=== PATIENT | male | born 1975 | race Caucasian/White ===

== ENCOUNTER 2016-07-20 09:56 | Emergency (ER) | payer OTHER ==
[~2016-07-20] VITALS: Ht 185.4 cm; Wt 93.0 kg
[2016-07-20 10:08] VITALS: BP 121/73
== END 2016-07-20 10:44 | disposition home or self-care (01) ==
LOC: ER 09:57
DX: S49.91XA Unspecified injury of right shoulder and upper arm, initial encounter (principal); T40.5X5A Adverse effect of cocaine, initial encounter; X58.XXXA Exposure to other specified factors, initial encounter; Y93.89 Activity, other specified; Y92.89 Other specified places as the place of occurrence of the external cause; Y99.9 Unspecified external cause status
CPT/HCPCS: 73030; 93005; 99284; A4606; Z7610